=== PATIENT | female | born 1985 | race Caucasian/White ===

== ENCOUNTER 2017-03-19 19:45 | Inpatient (IN) | payer MEDICAID ==
[~2017-03-19] VITALS: Ht 162.6 cm; Wt 92.1 kg
[2017-03-19] MEDS ORDERED: LACTATED RINGERS 1,000 ML IV SCH (20:57)
[2017-03-19] MEDS ORDERED: OXYTOCIN 20 UNITS/LR PREMIX 1,000 ML IV SCH (20:57)
[2017-03-19] MEDS ORDERED: METHYLERGONOVINE 0.2 MG/ML AMP IM SCH (21:00)
[2017-03-19] MEDS ORDERED: CARBOPROST 250 MCG/ML AMP IM PRN (21:00)
[2017-03-19] MEDS ORDERED: OXYTOCIN 10 UNITS/ML VIAL IM ONE (21:00)
[2017-03-19] MEDS ORDERED: IBUPROFEN 800 MG TAB PO PRN (21:00)
[2017-03-19] MEDS ORDERED: AMPICILLIN 2,000 MG VIAL ONE (21:39)
[2017-03-19 21:40] LABS: BASOPHILS # (AUTO) 0.1 K/uL (0.00-0.22); BASOPHILS % (AUTO) 0.7 % (0.0-2.0); EOSINOPHILS # (AUTO) 0.1 K/uL (0-0.4); EOSINOPHILS % (AUTO) 1.4 % (0.0-4.0); HEMATOCRIT 34.7 % (36-48); HEMOGLOBIN 11.3 g/dL (12.0-16.0); LYMPHOCYTES # (AUTO) 2.1 K/uL (2.5-16.5); LYMPHOCYTES % (AUTO) 23.9 % (20.5-51.1); MEAN CORPUSCULAR HEMOGLOBIN 28 pg (27-31); MEAN CORPUSCULAR HGB CONC 33 g/dL (33-37); MEAN CORPUSCULAR VOLUME 85 fL (80-94); MONOCYTES # (AUTO) 0.4 K/uL (0.8-1.0); MONOCYTES % (AUTO) 4.5 % (1.7-9.3); NEUTROPHILS % (AUTO) 69.5 % (42.2-75.2); PLATELET COUNT (AUTO) 156 K/uL (140-450); RED BLOOD CELL COUNT(AUTO) 4.09 MIL/uL (4.20-5.40); RED CELL DISTRIBUTION WIDTH 13.1 % (11.6-13.7); WHITE BLOOD COUNT (AUTO) 8.7 K/uL (4.8-10.8)
[2017-03-19] MEDS ORDERED: NALBUPHINE HYDROCHLORIDE 10 MG/ML VIAL ONE (21:40)
[2017-03-19] MEDS ORDERED: PROMETHAZINE 25 MG/ML VIAL ONE (21:40)
[2017-03-19 21:52] LABS: APPEARANCE,URINE CLEAR (CLEAR); BILIRUBIN,URINE NEGATIVE (NEGATIVE); BLOOD, URINE NEGATIVE (NEGATIVE); COLOR,URINE YELLOW (YELLOW); LEUKOCYTE ESTERASE ,URINE NEGATIVE (NEGATIVE); NITRITE, URINE NEGATIVE (NEGATIVE); UGLUCOSE NEGATIVE (NEGATIVE)
[2017-03-19] MEDS: PROMETHAZINE 25 MG/ML VIAL IVP PRN (21:55)
[2017-03-19] MEDS: NALBUPHINE 10 MG/ML AMP IVP PRN (21:55)
[2017-03-19 22:04] LABS: BARBITURATE, URINE NEG. ng/ml (NEG <=200); BENZODIAZEPINE, URINE NEG. ng/mL (NEG <=200); CANNABINOID, URINE NEG. ng/mL (NEG <=50); COCAINE, URINE NEG. ng/mL (NEG <=300); OPIATE, URINE NEG. ng/mL (NEG <=2000); PHENCYCLIDINE SCREEN,URINE NEG. ng/mL (NEG <=25)
[2017-03-19 22:08] LABS: ALBUMIN 2.5 g/dL (3.4-5.0); CARBON DIOXIDE 23.3 mmol/L (21-32); CREATININE 0.6 mg/dL (0.6-1.3); POTASSIUM 3.3 mmol/L (3.5-5.1); TOTAL BILIRUBIN 0.2 mg/dL (0.0-1.0)
[2017-03-19 22:51] VITALS: BP 131/79
[2017-03-19] MEDS ORDERED: BETAMETH ACET/BETAMETH NA PH 30 MG/5 ML VIAL IM ONE (23:45)
[2017-03-20] MEDS ORDERED: BETAMETH ACET/BETAMETH NA PH 30 MG/5 ML VIAL IM ONE (00:02)
[2017-03-20] MEDS: PROMETHAZINE 25 MG/ML VIAL IVP PRN ×2 (01:56→04:09)
[2017-03-20] MEDS ORDERED: OXYTOCIN 20 UNITS/LR PREMIX 1,000 ML IV ONE (01:56)
[2017-03-20] MEDS: NALBUPHINE 10 MG/ML AMP IVP PRN ×2 (01:56→04:09)
[2017-03-20] MEDS ORDERED: PROMETHAZINE 25 MG/ML VIAL ONE ×2 (02:01→04:15)
[2017-03-20] MEDS ORDERED: NALBUPHINE HYDROCHLORIDE 10 MG/ML VIAL ONE ×2 (02:01→04:14)
[2017-03-20] MEDS ORDERED: OXYTOCIN 10 UNITS/ML VIAL ONE (02:02)
[2017-03-20] MEDS ORDERED: LIDOCAINE 1% 500 MG/50 ML VIAL INJ SCH (02:30)
[2017-03-20] MEDS ORDERED: LIDOCAINE 1% 0 ML ONE (02:39)
[2017-03-20] MEDS ORDERED: oxyCODONE/APAP 5/325 MG 1 TAB TAB PO PRN (04:45)
[2017-03-20] MEDS ORDERED: OXYTOCIN 10 UNITS/ML VIAL IM PRN (04:45)
[2017-03-20] MEDS ORDERED: BENZOCAINE/MENTHOL 20%-0.5% 60 GM CAN TP PRN (04:45)
[2017-03-20] MEDS ORDERED: WITCH HAZEL 40 PAD PACKAGE TP PRN (04:45)
[2017-03-20] MEDS ORDERED: METHYLERGONOVINE 0.2 MG/ML AMP IM PRN (04:45)
[2017-03-20] MEDS ORDERED: HYDROcodone/APAP 5/325 MG 1 TAB TAB PO PRN (04:45)
[2017-03-20] MEDS ORDERED: TEMAZEPAM 15 MG CAP PO PRN (04:45)
[2017-03-20] MEDS ORDERED: MEASLES, MUMPS, AND RUBELLA 1 VIAL SQVAC PRN (04:45)
--- NOTE | 2017-03-20 08:10 | NUR ---
PATIENT HAS BEEN SCREENED AND CATEGORIZED LOW NUTRITION RISK. PATIENT WILL BE SEEN WITHIN 7 DAYS OF ADMISSION. 03/26/[address]
[2017-03-20] MEDS: IBUPROFEN 800 MG TAB PO PRN (17:23)
[2017-03-20] MEDS ORDERED: DOCUSATE SOD/SENNA 50/8.6 MG 1 TAB PO SCH (21:00)
[2017-03-20] MEDS ORDERED: AMPICILLIN 1,000 MG VIAL IVP SCH (22:00)
[2017-03-21 05:35] LABS: HEMATOCRIT 31.3 % (36-48); HEMOGLOBIN 10.3 g/dL (12.0-16.0)
[2017-03-21] MEDS ORDERED: OXYTOCIN 10 UNITS/ML VIAL ONE (20:46)
[2017-03-22] MEDS: IBUPROFEN 800 MG TAB PO PRN (02:05)
[2017-03-22] MEDS ORDERED: IBUP800T99 PO (09:59)
== END 2017-03-22 14:10 | disposition home or self-care (01) | DRG 560 ==
LOC: MLD 19:45 → OBSVTOIN 19:45 → MLD 21:13 → MFCC 03-20 08:00
PROVIDERS: ADMIT Obstetrics & Gynecology; ATTEND Obstetrics & Gynecology
PROC: 10E0XZZ Delivery of Products of Conception, External Approach (ICD-10-PCS; principal; 2017-03-20)
PROC: 10907ZC Drainage of Amniotic Fluid, Therapeutic from Products of Conception, Via Natural or Artificial Opening (ICD-10-PCS; 2017-03-20)
PROC: 3E0234Z Introduction of Serum, Toxoid and Vaccine into Muscle, Percutaneous Approach (ICD-10-PCS; 2017-03-21)
DX: O80 Encounter for full-term uncomplicated delivery (principal); Z23 Encounter for immunization; Z37.0 Single live birth; Z3A.37 37 weeks gestation of pregnancy; Z83.3 Family history of diabetes mellitus; Z82.49 Family history of ischemic heart disease and other diseases of the circulatory system; Z84.89 Family history of other specified conditions
CPT/HCPCS: 36415; 59409; 76805; 80053; 80305; 81003; 85018; 85025; 86592; 86762; 86886; 86900; 86901; 87340; 87653-90; 90715; J0290; J0702; J2001; J2300; J2550; J2590; J7120

== ENCOUNTER 2017-05-21 06:10 | Day surgery (SDC) | payer OTHER ==
[~2017-05-21] VITALS: Ht 162.6 cm; Wt 89.8 kg
[~2017-05-21 06:10] MED LIST: IBUP-2217 PO
[2017-05-21] MEDS ORDERED: PROPOFOL 200 MG/20 ML VIAL IV ONE (07:19)
[2017-05-21] MEDS ORDERED: SEVOFLURANE 250 ML BTL INH ONE (07:19)
[2017-05-21] MEDS ORDERED: BUPIVACAINE-MPF 0.5% 30 ML VIAL INJ ONE (07:32)
[2017-05-21] MEDS ORDERED: MIDAZOLAM 2 MG/2 ML VIAL ONE (07:33)
[2017-05-21] MEDS ORDERED: fentaNYL 0.05 MG/ML VIAL ONE (07:33)
[2017-05-21] MEDS ORDERED: ACETAMINOPHEN/CODEINE 300/30MG 1 TAB PO PRN (07:40)
[2017-05-21] MEDS ORDERED: IBUPROFEN 800 MG TAB PO PRN (07:40)
[2017-05-21] MEDS ORDERED: MORPHINE SULFATE 4 MG/ML SYR IM/IVP PRN (07:40)
[2017-05-21] MEDS ORDERED: ONDANSETRON 4 MG/2 ML VIAL IVP PRN ×2 (07:40→08:05)
[2017-05-21] MEDS ORDERED: HYDROmorphone 1 MG/ML AMP IVP PRN (08:05)
[2017-05-21] MEDS: HYDROmorphone PFS 2 MG/ML SYR ONE ×2 (08:36→08:46)
== END 2017-05-21 10:15 | disposition home or self-care (01) ==
LOC: MDS 06:10 → MMU 06:10 → MDS 10:15
PROVIDERS: ATTEND Obstetrics & Gynecology
DX: Z30.2 Encounter for sterilization (principal); J45.909 Unspecified asthma, uncomplicated; K21.9 Gastro-esophageal reflux disease without esophagitis; I11.9 Hypertensive heart disease without heart failure; E11.22 Type 2 diabetes mellitus with diabetic chronic kidney disease; D64.9 Anemia, unspecified; G40.909 Epilepsy, unspecified, not intractable, without status epilepticus; F03.90 Unspecified dementia, unspecified severity, without behavioral disturbance, psychotic disturbance, mood disturbance, and anxiety; E66.9 Obesity, unspecified; Z64.1 Problems related to multiparity; Z90.49 Acquired absence of other specified parts of digestive tract; F17.210 Nicotine dependence, cigarettes, uncomplicated; Z98.890 Other specified postprocedural states
CPT/HCPCS: 58600; J0690; J1170; J2250; J2704; J3010; J3490; J7060; J7120